=== PATIENT | female | born 1945 | race Caucasian/White ===

== ENCOUNTER 2020-05-17 22:46 | Emergency (ER) | payer MEDICARE, BC ==
--- NOTE | 2020-05-18 00:13 | EDM.PDOC ---
ED HPI GENERAL MEDICAL PROBLEM - General Chief Complaint: Skin Complaint Stated Complaint: TICK BITE Time Seen by Provider: 05/17/20 23:26 Source of Information: Reports: Patient, Family () History Limitations: Reports: Physical Impairment (Very hard of hearing) - History of Present Illness INITIAL COMMENTS - FREE TEXT/NARRATIVE: Mrs. Mcdaniel is a very pleasant 74-year-old woman who now presents to the ED stating that she found a tick biting her medial left calf approximately 05/12/2020. She states that she was in [place] at the time. She states that the tick was fairly large. Her states that it was a wood tick. The patient states that she removed it herself. The following day, she states that she developed a painless, occasionally pruritic erythematous rash to the area. She saw her PCP on 05/15/2020. Her PCP pen demarcated the area of erythema, and started the patient on doxycycline, which the patient states she has been taking as prescribed. The patient now presents to the ED because the erythema has extended beyond the margins of the pen demarcation, and the patient states that her PCP instructed that she go to the ER if that were to happen. The rash is still painless, although still occasionally pruritic. The patient has not had a fever or chills. Here in the ED, the patient's initial BP is found to be elevated at 154/80, otherwise, she is hemodynamically stable, afebrile, saturating 96% on room air. Other than the leg rash, the patient denies recent fever, chills, sore throat, ear pain, nasal or sinus congestion, cough, dyspnea, chest pain, palpitations, nausea, vomiting, constipation, diarrhea, abdominal pain, urinary symptoms, recent weight gain or weight loss, recent bloody bowel movements or black bowel movements, recent joint aches, or headaches. The patient and her are visiting from [place]. Treatments SECTION [employer]: Reports: Acetaminophen - Related Data Allergies Allergy/AdvReac Type Severity Reaction Status Date / Time Sulfa (Sulfonamide Allergy Severe Anaphylactic Verified 05/17/20 23:09 Antibiotics) Shock Home Meds: Home Meds Doxycycline Hyclate 100 mg PO BID 05/17/20 [History] atenoloL [Atenolol] 25 mg PO DAILY 05/17/20 [History] Past Medical History HEENT History: Reports: Hard of Hearing, Impaired Vision Cardiovascular History: Reports: Hypertension [employer] History: Reports: Spontaneous (x 2) Musculoskeletal History: Reports: Fracture (left leg) - Past Surgical History HEENT Surgical History: Reports: Adenoidectomy, Tonsillectomy Female Surgical History: Reports: D&C (x 1) Social & Family History - Tobacco Use Smoking Status *Q: Never Smoker - Caffeine Use Caffeine Use: Reports: Coffee, Soda - Alcohol Use Alcohol Use History: Yes Alcohol Use Frequency: Socially - Recreational Drug Use Recreational Drug Use: No - Living Situation & Occupation Living situation: Reports: , with Spouse Occupation: Retired ED ROS GENERAL - Review of Systems Review Of Systems: Comprehensive ROS is negative, except as noted in HPI. ED EXAM, SKIN/RASH Exam: See Below Exam Limited By: No Limitations General Appearance: Alert, WD/WN, No Apparent Distress Extremities: Other (There is an oval patch of dark erythema, almost purplish, to the medial aspect of the patient's left calf, measuring approximately 6 cm high x 11 cm wide. The area of erythema slightly extends beyond a pen demarcation. The area of erythema is not swollen, there is no fluctuance or drainage, and there is no calor to the area, whatsoever. Neurovascular status of the left lower extremity is intact.) Course - Vital Signs Last Recorded V/S: Last Vital Signs Temp 36.1 C 05/17/20 23:05 Pulse 72 05/17/20 23:05 Resp 18 05/17/20 23:05 BP 154/80 H 05/17/20 23:05 Pulse Ox 96 05/17/20 23:05 - Re-Assessments/Exams Free Text/Narrative Re-Assessment/Exam: 05/18/20 00:07 As above, the patient developed an erythematous rash the morning after she discovered a tick biting her medial left calf, about 5 days ago. She was started on doxycycline on 05/15/2020, but the erythema has extended beyond the demarcation made by her physician. The patient has not had a fever, and on physical exam, the erythema does not have calor. Tickborne rash diseases include ehrlichiosis, Lyme disease, and Franklin spotted fever, however, the description of the patient's rash, it's history, and her lack of fever is not consistent with any of those illnesses. Instead, I suspect that the patient is suffering from a local inflammatory reaction to an insect bite. In that case, doxycycline is not indicated, rather, I will recommend that she take a nonsedating antihistamine, such as Zyrtec, along with ice packs. She should expect the rash to resolve by around 05/24/2020. Departure - Departure Time of Disposition: 00:13 Disposition: Home, Self-Care 01 Condition: Good Clinical Impression: Cutaneous reaction to insect bite - Discharge Information *PRESCRIPTION DRUG MONITORING PROGRAM REVIEWED*: Not Applicable *COPY OF PRESCRIPTION DRUG MONITORING REPORT IN PATIENT AJ: Not Applicable Instructions: Insect Bite, Adult, [id number] Referrals: PCP,None [Primary Care Provider] - Forms: ED Department Discharge Additional Instructions: You were seen in the emergency room for an expanding rash on your left calf, after you were bitten by a tick late last week, despite being on doxycycline since 05/15/2020. Based on your history and physical exam you are suffering from a local inflammatory reaction to an insect bite, not cellulitis. You may continue the doxycycline, if you like, however, I do not feel that it will benefit you. We recommend that you take an [id number] antihistamine, such as Zyrtec, as directed on the label. We also recommend that you apply an ice pack to the rash for 10 to 15 minutes, 5 times a day. You should expect the rash to resolve on or about 05/24/2020. If any other problems, please do not hesitate to return to the ER. Sepsis Event Note (ED) - Evaluation Sepsis Screening Result: No Definite Risk - Focused Exam Vital Signs: Vital Signs Temp Pulse Resp BP Pulse Ox 05/17/20 23:05 36.1 C 72 18 154/80 H 96
== END 2020-05-18 00:24 | disposition home or self-care (01) ==
LOC: JD.ED 22:46
DX: S80.862A Insect bite (nonvenomous), left lower leg, initial encounter (principal); L53.9 Erythematous condition, unspecified; I10 Essential (primary) hypertension; Z88.2 Allergy status to sulfonamides; Z79.899 Other long term (current) drug therapy; W57.XXXA Bitten or stung by nonvenomous insect and other nonvenomous arthropods, initial encounter
CPT/HCPCS: 99282